=== PATIENT | male | born 1975 | race African-American/Black ===

== ENCOUNTER 2021-09-30 17:20 | Observation (INO) ==
--- NOTE | 2021-09-30 17:51 | DR.HTN ---
HPI Time Seen Time Seen by Provider: 09/30/21 17:50 HPI Comment HPI Comment: PATIENT IS 45YR OLD MALE IN ER WITH HEADACHE AND ELEVATED BP. PATIENT HAVE NO HISTORY OF HYPERTENSION. SAID FOR SEVERAL DAYS BP HAS BEING ELEVATED AND THAT PATIENT WAS HAVING HEADACHE AND JAW PAIN. HE IS WORSE TODAY. Complaints Chief Complaint Doctors Comments: ELEVATED BP, RIGHT TEMPORAL HEADACHE. COVID-19 Coronavirus risk:travel/contact w/high risk person: No Has patient experienced Coronavirus symptoms: No Reviewed Nurses Notes Reviewed: Yes Source History Provided: Patient Mode of Arrival Mode of Arrival: Ambulatory Severity Severity: None Context Circumstances: Spontaneous Onset Associated Signs and Symptoms HTN Associated Signs and Symptoms: Headache, Chest Pain and Shortness of Breath PMH PMH Past Surgical History: No Family History Family Medical History: Diabetes Mellitus, Cancer, CA and Hypertension Social History Do you use any recreational Drugs:: No Travel Risk Coronavirus risk:travel/contact w/high risk person: No Has patient experienced Coronavirus symptoms: No ROS Review of Systems Constitutional: No Symptoms Reported and See HPI; negative Fever, Weakness and Fatigue Eyes: No Symptoms Reported and See HPI; negative Blurred Vision and Diplopia ENTM: No Symptoms Reported and See HPI; negative Nose Discharge and Nose Congestion Respiratoy: No Symptoms Reported and See HPI; negative Moist Cough, Short of Breath and Wheezing Cardiovascular: No Symptoms Reported and See HPI; negative Chest Pain Gastrointestinal/Abdominal: No Symptoms Reported, See HPI and Abdominal Pain; negative Diarrhea, Nausea and Vomiting Genitourinary: No Symptoms Reported and See HPI; negative Dysuria Neurological: See HPI and Headache; negative Weakness and Dizziness Musculoskeletal: No Symptoms Reported and See HPI; negative Muscle Pain Integumentary: No Symptoms Reported and See HPI; negative Rash and Juandice Hematologic/Lymphatic: No Symptoms Reported and See HPI; negative Easy Bruising Endocrine: No Symptoms Reported and See HPI; negative Increased Thirst and Increased Urine Psychiatric: No Symptoms Reported and See HPI All Other Systems: Reviewed and Negative PE Vital Signs Vitals: Temperature 97.6 F Pulse Rate 73 Respiratory Rate 16 Blood Pressure 121/76 O2 Sat by Pulse Oximetry 100 General Limitations: No Limitations General Appearance: Alert and In No Apparent Distress Head Head Exam: Normal Inspection Eyes Eye exam: Normal Appearance; negative Scleral Icterus and Conjunctival Injection Pupils: Regular, Round: Bilateral and Reactive: Bilateral Sclera/Conjunctival: Normal Inspection: Bilateral ENT ENT Exam: Normal Exam Neck Neck Exam: Normal Inspection and Trachea Midline; negative Tenderness Chest Chest Inspection: Normal Inspection and Symmetric Chest Wall Rise Respiratory Respiratory Exam: Normal Lung Sounds Bilat; negative Accessory Muscle Use, Chest Wall Tenderness and Respiratory Distress Respiratory Exam: Bilateral: Clear to Auscultation Cardiovascular Cardiovascular Exam: Regular Rate, Normal Rhythm and Normal Heart Sounds; negative Systolic Murmur and Diastolic Murmur Abdominal Exam Abdominal Exam: Normal Inspection, Normal Bowel Sounds and Soft; negative Tenderness Extremities Extremities Exam: Normal Inspection and Normal Capillary Refill Back Back Exam: Normal Inspection; negative (R) CVA Tenderness and (L) CVA Tenderness Neurologic Neurological Exam: Alert and Oriented X3; negative Motor Sensory Deficit Patient Oriented To: Person, Place and Time Speech: Fluid Speech Cranial Nerve Exam: EOM Function (II, III, IV, ): Normal, Facial Sensation (V): Normal, Facial Palsy (VII): Normal, Gag reflex (XI): Normal and Tongue Deviation: Normal Motor Strength - LUE: 5/5 Motor Strength - RUE: 5/5 Motor Strength - LLE: 5/5 Motor Strength - RLE: 5/5 Upper Motor Neuron Exam: Babinski Sign: Normal Psychiatric Psychiatric Exam: Normal Affect and Normal Mood Skin Skin Exam: Warm, Dry, Intact and Normal Color MDM Differential Diagnosis Differential Diagnosis: Hypertensive emergency Differential Diagnosis Comment: HEADACHE, CVA, MASS LESION. COURSE Treatment Treatment: SEE ORDERS. WHILE IN ER, BECAME BRADYCARDIC AND HAD SYNCOPAL EPISODE. HE WAS HYPOTENSIVE. GIVEN NS IL IV BOLUS. PATIENT ADMITTED TO HOSPITAL FOR FURTHER MANAGEMENT. Reevaluation 1st: Worsened Consultation Consultation Comments: DISCUSSED PATIENT WITH DR. ERNANDEZ. HE [place] WILL ADMIT PATIENT. Education/Counseling Education/Counseling: Patient Educated On: Diagnosis ROR Labs Reviewed Laboratory Results Reviewed?: Yes Result Diagrams: 10/01/21 05:22 10/01/21 05:22 Laboratory: WBC 7.7 X10^3/uL (3.6-10.0) 09/30/21 18:40 RBC 5.30 X10^6/uL (4.7-6.0) 09/30/21 18:40 Hgb 16.2 g/dL (13.5-18.0) 09/30/21 18:40 Hct 45.7 % (42.0-54.0) 09/30/21 18:40 MCV 86.3 fL (80.0-100.0) 09/30/21 18:40 MCH 30.6 pg (27.0-34.0) 09/30/21 18:40 MCHC 35.5 g/dL (33.0-35.0) H 09/30/21 18:40 RDW 12.9 % (11.6-16.5) 09/30/21 18:40 Plt Count 293 X10^3/uL (150.0-450.0) 09/30/21 18:40 MPV 7.2 fL (7.4-11.0) L 09/30/21 18:40 Neut % (Auto) 64.5 % (42.0-75.0) 09/30/21 18:40 Lymph % (Auto) 24.2 % (21.0-51.0) 09/30/21 18:40 [place] % (Auto) 8.6 % (0.0-13.0) 09/30/21 18:40 Eos % (Auto) 2.0 % (0.9-2.9) 09/30/21 18:40 Baso % (Auto) 0.7 % (0.2-1.0) 09/30/21 18:40 Neut # (Auto) 5.0 x10^3/uL (2.2-4.8) H 09/30/21 18:40 Lymph # (Auto) 1.9 X10^3/uL (1.3-2.9) 09/30/21 18:40 [place] # (Auto) 0.7 x10^3/uL (0.3-0.8) 09/30/21 18:40 Eos # (Auto) 0.2 x10^3/uL (0.0-0.2) 09/30/21 18:40 Baso # (Auto) 0.1 X10^3/uL (0.0-0.1) 09/30/21 18:40 Absolute Nucleated RBC 0.1 /100WBC 09/30/21 18:40 Sodium 138 mmol/L (136-145) 09/30/21 18:40 Corrected Sodium 139 mmol/L (136-145) 09/30/21 18:40 Potassium 3.1 mmol/L (3.5-5.1) L 09/30/21 18:40 Chloride 101 mmol/L (98-107) 09/30/21 18:40 Carbon Dioxide 29.1 mmol/L (21-32) 09/30/21 18:40 BUN 15 mg/dL (7-18) 09/30/21 18:40 Creatinine 0.93 mg/dL (0.70-1.30) 09/30/21 18:40 Est GFR (MDRD) Af Amer > 60 (>60) 09/30/21 18:40 Est GFR (MDRD) Non-Af > 60 (>60) 09/30/21 18:40 Glucose 159 mg/dL (65-99) H 09/30/21 18:40 Calcium 8.8 mg/dL (8.5-10.1) 09/30/21 18:40 Corrected Calcium TNP 09/30/21 18:40 Total Bilirubin 0.40 mg/dL (0.2-1.0) 09/30/21 18:40 AST 20 Units/L (15-37) 09/30/21 18:40 ALT 32 Units/L (12-78) 09/30/21 18:40 Alkaline Phosphatase 144 Units/L (46-116) H 09/30/21 18:40 Total Protein 8.3 g/dL (6.4-8.2) H 09/30/21 18:40 Albumin 3.7 g/dL (3.4-5.0) 09/30/21 18:40 Globulin 4.6 g/dL (2.5-4.5) H 09/30/21 18:40 Albumin/Globulin Ratio 0.8 Ratio (1.1-2.1) L 09/30/21 18:40 SARS CoV-2 RNA Rapid DOYLE Negative (NEGATIVE) 09/30/21 20:24 XRAY XRAY Interpreted by: Radiologist (REPORT NOTED AND DISCUSSED WITH PATIENT.) and Self EKG Rate: 72 [place]: Normal Rhythm: NSR Block: AVB Hypertrophy: None ST: Nonsp Opioid Opioid Risk Tool Age (Joe box if 16-45): No Total: 0 Total Score Risk Category: Low Risk Copyright: [facility] predicting aberrant behaviors Diagnosis Discharge Problem: Hypotensive episode, Bradycardia Hypertension Qualifiers: Hypertension type: unspecified Qualified Code(s): I10 - Essential (primary) hypertension Headache Qualifiers: Headache type: unspecified Headache chronicity pattern: acute headache Intractability: intractable Qualified Code(s): R51.9 - Headache, unspecified Instructions Instructions: How to Take Your Blood Pressure Preventing Hypertension Migraine Headache, Rxjf-py-Ilky Heart Attack General Headache Without Cause, Btoq-cs-Vyme Hypertension Forms: Excuse From Work or School Precautions for COVID19 [facility] Patient Portal Social Distancing
[2021-09-30] MEDS ORDERED: CATAPRES TAB 0.1 MG PO ONE (18:31)
[2021-09-30] MEDS ORDERED: CATAPRES TAB 0.1 MG ONE (18:40)
[2021-09-30 18:47] LABS: BASOPHILS # (AUTO) 0.1 X10^3/uL (0.0-0.1); BASOPHILS % (AUTO) 0.7 % (0.2-1.0); EOSINOPHILS # (AUTO) 0.2 x10^3/uL (0.0-0.2); HEMATOCRIT 45.7 % (42.0-54.0); HEMOGLOBIN 16.2 g/dL (13.5-18.0); LYMPHOCYTES # (AUTO) 1.9 X10^3/uL (1.3-2.9); LYMPHOCYTES % (AUTO) 24.2 % (21.0-51.0); MEAN CORPUSCULAR HEMOGLOBIN 30.6 pg (27.0-34.0); MEAN CORPUSCULAR HGB CONC 35.5 g/dL (33.0-35.0); MEAN CORPUSCULAR VOLUME 86.3 fL (80.0-100.0); MEAN PLATELET VOLUME 7.2 fL (7.4-11.0); MONOCYTES # (AUTO) 0.7 x10^3/uL (0.3-0.8); MONOCYTES % (AUTO) 8.6 % (0.0-13.0); NEUTROPHILS % (AUTO) 64.5 % (42.0-75.0); RED CELL DISTRIBUTION WIDTH 12.9 % (11.6-16.5); WHITE BLOOD COUNT 7.7 X10^3/uL (3.6-10.0)
[2021-09-30] MEDS ORDERED: NS 1,000 ML IV 1,000 ML ONE (18:49)
[2021-09-30] MEDS ORDERED: NS 1,000 ML IV 1,000 ML IV ONE (18:52)
[2021-09-30 18:58] LABS: ALANINE AMINOTRANSFERASE 32 Units/L (12-78); ALBUMIN 3.7 g/dL (3.4-5.0); ALKALINE PHOSPHATASE 144 Units/L (46-116); ASPARTATE AMINO TRANSFERASE 20 Units/L (15-37); BLOOD UREA NITROGEN 15 mg/dL (7-18); CALCIUM 8.8 mg/dL (8.5-10.1); CARBON DIOXIDE 29.1 mmol/L (21-32); CHLORIDE 101 mmol/L (98-107); COR NA(FOR HYPERGLY) 139 mmol/L (136-145); CREATININE 0.93 mg/dL (0.70-1.30); SODIUM 138 mmol/L (136-145); TOTAL PROTEIN 8.3 g/dL (6.4-8.2); eGFR NON BLACK RACES > 60 (>60)
--- NOTE | 2021-09-30 19:33 | CT ---
HISTORYHypertensionSTUDYBRAIN W/O CONCOMPARISONNone available.TECHNIQUEAxial non-contrast images of the head with coronal and sagittal reformats.Radiation dose: 1290.00 mGy-cm total DLPFINDINGSNo abnormal areas of acute attenuation in the brain parenchyma.Castillo-white differentiation remains intact.No intracranial, extra-axial, fluid collection.No hemorrhage.No mass, mass effect or midline shift.No ventriculomegaly.No acute fracture.Sinuses are well aerated.Mastoid air cells are well aerated.Globes and intraorbital contents are unremarkable.IMPRESSIONNo acute intracranial abnormality identified.Electronically signed by: Carlos Mills (Sep 30, 2021 19:32:08)
--- NOTE | 2021-09-30 19:33 | RAD ---
HISTORYCP, ELEVATED BPSTUDYCHEST, 1 VIEWCOMPARISONNone availableTECHNIQUEChest radiographic imaging, frontal projection, 1 imageFINDINGSNo cardiomegaly.No focal airspace disease.No pleural effusion.No pneumothorax.No acute osseous abnormality.IMPRESSIONNo imaging findings of acute cardiopulmonary disease.Electronically signed by: Carlos Mills (Sep 30, 2021 19:32:43)
[2021-09-30] MEDS ORDERED: NS 1,000 ML IV 1,000 ML IV SCH (22:20)
[2021-09-30] MEDS ORDERED: K-DUR TAB 20 MEQ PO PRN (22:46)
[2021-09-30] MEDS ORDERED: POTASSIUM CHL 60 MEQ/NS 0.45% 500 ML IV PRN (22:46)
[2021-09-30] MEDS ORDERED: K-RIDER 10 MEQ/NS 100 ML 10 MEQ/100 ML BAG IV PRN (22:46)
[2021-09-30] MEDS ORDERED: MICRO K EXTEN CAP 10 MEQ PO PRN (22:46)
[2021-09-30] MEDS ORDERED: KLOR-CON PO PRN (22:46)
[2021-09-30] MEDS ORDERED: POTASSIUM CHL 40 MEQ/NS 0.45% 500 ML IV PRN (22:46)
[2021-09-30] MEDS ORDERED: POTASSIUM CHLORIDE LIQ 20 MEQ UDC PO PRN (22:46)
[2021-09-30] MEDS ORDERED: MAGNESIUM SULFATE 1 GRAM/100 mL PREMIX 1 G/100 ML BAG IV PRN (22:46)
[2021-09-30] MEDS ORDERED: TYLENOL 325 MG TAB PO PRN (23:03)
[2021-09-30 23:44] VITALS: BMI 27.1
[2021-09-30 23:57] LABS: CKMB % 0.8 % (<4); CREATINE KINASE MB 1.4 ng/mL (0-4.0)
[2021-10-01 06:08] LABS: BASOPHILS % (AUTO) 0.6 % (0.2-1.0); EOSINOPHILS # (AUTO) 0.1 x10^3/uL (0.0-0.2); EOSINOPHILS % (AUTO) 1.5 % (0.9-2.9); HEMATOCRIT 43.6 % (42.0-54.0); HEMOGLOBIN 15.3 g/dL (13.5-18.0); LYMPHOCYTES # (AUTO) 1.6 X10^3/uL (1.3-2.9); LYMPHOCYTES % (AUTO) 22.7 % (21.0-51.0); MEAN CORPUSCULAR HEMOGLOBIN 30.2 pg (27.0-34.0); MEAN CORPUSCULAR HGB CONC 35.1 g/dL (33.0-35.0); MEAN CORPUSCULAR VOLUME 86.1 fL (80.0-100.0); MEAN PLATELET VOLUME 7.6 fL (7.4-11.0); MONOCYTES # (AUTO) 0.6 x10^3/uL (0.3-0.8); MONOCYTES % (AUTO) 8.8 % (0.0-13.0); NEUTROPHILS # (AUTO) 4.6 x10^3/uL (2.2-4.8); NEUTROPHILS % (AUTO) 66.4 % (42.0-75.0); RED BLOOD COUNT 5.07 X10^6/uL (4.7-6.0); RED CELL DISTRIBUTION WIDTH 13.1 % (11.6-16.5)
[2021-10-01 06:47] LABS: ALANINE AMINOTRANSFERASE 30 Units/L (12-78); ALBUMIN 3.4 g/dL (3.4-5.0); ALKALINE PHOSPHATASE 131 Units/L (46-116); ASPARTATE AMINO TRANSFERASE 17 Units/L (15-37); BLOOD UREA NITROGEN 14 mg/dL (7-18); CALCIUM 8.2 mg/dL (8.5-10.1); CARBON DIOXIDE 28.2 mmol/L (21-32); CHLORIDE 105 mmol/L (98-107); CKMB % 0.7 % (<4); COR NA(FOR HYPERGLY) 141 mmol/L (136-145); CREATINE KINASE 143 Units/L (39-308); CREATININE 0.94 mg/dL (0.70-1.30); MAGNESIUM 2.4 mg/dL (1.7-2.9); SODIUM 140 mmol/L (136-145); TOTAL PROTEIN 7.6 g/dL (6.4-8.2); eGFR NON BLACK RACES > 60 (>60)
[2021-10-01 08:26] VITALS: BP 153/89
[2021-10-01] MEDS ORDERED: CATAPRES TAB 0.1 MG PO SCH (09:00)
[2021-10-01] MEDS ORDERED: FIORICET TAB PO ONE (09:23)
--- NOTE | 2021-10-01 10:07 | DR.CARTERS ---
Short Stay Summary - Admission Date Date of Admission: 09/30/21 - Discharge Date Discharge Date: 10/01/21 - Admission Diagnoses (1) Chest pain Status: Acute (2) Hypertension Status: Acute (3) Bradycardia Status: Acute (4) Headache Status: Acute - Hospital Course Hospital Course: IS A 45 YEAR OLD PATIENT OF OURS. HE PRESENTED TO THE ER WITH COMPLAINTS OF ELEVATED BLOOD PRESSURE, PERSISTENT HEADACHE, AND JAW PAIN. PATIENT REPORTED THAT SYMPTOMS HAVE BEEN PRESENT FOR THE PAST 5-6 DAYS. HE DENIED WEAKNESS, DIFFICULTY WITH BALANCE, OR SLURRED SPEECH. PATIENT DESCRIBES HEADACHE THROBBING AND RATES IT A 8/10. HIS PMH INCLUDES DEPRESSION, DM II, HYPOTHYROIDISM. ON ARRIVAL TO THE ER, HIS VITALS WERE: 97.6-96-18-97%-159/103. LABS WERE OBTAINED. WBC 7.7, HGB 16.2, HCT 45.7, SODIUM 138, POTASSIUM 3.1, BUN 15, CREATININE 0.93, GLUCOSE 159, CALCIUM 8.8, ALK PHOS 144, TOTAL PROTEIN 8.3, GLOBULIN 4.6. CARDIAC ENZYMES WERE WITHIN NORMAL LIMITS. COVID-[address] WAS OBTAINED AND REVEALED: No acute intracranial abnormality identified. EKG REVEALED: SINUS RHYTHM WITH HR 72. CHEST XRAY REVEALED: No imaging findings of acute cardiopulmonary disease. WHILE IN THE ER, PATIENT BECAME DIAPHORETIC, HYPOTENSIVE, AND HEART RATE DROPPED TO THE 40s. BLOOD PRESSURE DROPPED TO 78/45. PATIENT WAS GIVEN A NORMAL SALINE BOLUS AND PLACED IN [place] POSITION. AFTER BOLUS, BLOOD PRESSURE INCREASED TO 121/76 AND HR INCREASED TO 73 WITH NORMAL SINUS RHYTHM. PATIENT WAS ADMITTED TO THE HOSPITAL FOR FURTHER EVALUATION OF HYPERTENSION, HEADACHE, BRADYCARDIA, CHEST PAIN. HE WAS STARTED ON NORMAL SALINE AT KVO, THE POTASSIUM AND MAGNESIUM PROTOCOLS, CATAPRES 0.1MG PO BID, AND TYLENOL 650MG PO Q6H PRN. WE PLANNED TO OBTAIN SERIAL CARDIAC ENZYMES AND EKGS. OTHERWISE, WE PLANNED TO FOLLOW UP WITH AM LABS AND CONTINUE TO MONITOR. ON THE MORNING FOLLOWING ADMISSION, PATIENT IS ALERT AND ORIENTED, SITTING UP ON THE SIDE OF BEAD. HE CONTINUES WITH MILD HEADACHE, BUT DENIES ANY OTHER COMPLAINTS. HE RESPONDS VERBALLY AND ANSWERS QUESTIONS APPROPRIATELY. ON EXAMINATION, HEART IS REGULAR IN RATE AND RHYTHM. BILATERAL LUNGS ARE CLEAR TO AUSCULTATION. ABDOMEN IS ROUND, SOFT, AND NON-TENDER WITH NORMAL BOWEL SOUNDS NOTED IN ALL QUADRANTS. HIS VITALS THIS MORNING ARE: 98.6-100-20-98%-153/89. LABS WERE OBTAINED. HE IS HEMODYNAMICALLY STABLE. CARDIAC ENZYMES WNL. NO CHANGES NOTED TO EKGS. BLOOD PRESSURE AND PULSE RATE HAVE BEEN STABLE THROUGHOUT THE NIGHT. WE PLANNED FOR DISCHARGE. INSTRUCTIONS FOR MEDICATIONS AND FOLLOW-UP WERE DISCUSSED WITH PATIENT AND FAMILY. THEY VERBALIZED UNDERSTANDING OF ALL ORDERS. PATIENT WAS DISCHARGED HOME WITH NEW PRESCRIPTION FOR IRBESARTAN 150MG PO DAILY AND FIORICET 2 CAPSULES PO Q8H PRN HEADACHE. HE WAS INSTRUCTED TO DISCONTINUE THE ADDERALL SINCE HE IS ALSO TAKING VYVANSE. HE WAS INSTRUCTED TO FOLLOW UP IN THE OFFICE IN ONE WEEK. PATIENT WAS DISCHARGED HOME WITH SPOUSE IN STABLE, IMPROVED CONDITION. TIME SPENT ON CLINICAL ASSESSMENT, REVIEWING LABS AND IMAGING, DECISION MAKING, DISCHARGE INSTRUCTIONS, PREPARING DISCHARGE PAPERS, AND DOCUMENTATION GREATER THAN 75 MINUTES. - Discharge Medications Discharge Medications: Home Medication List Januvia 50 mg PO DAILY 09/30/21 [History] Vyvanse 50 mg PO DAILY 09/30/21 [History] ergocalciferol (vitamin D2) 1,250 mcg PO WEEKLY 09/30/21 [History] escitalopram oxalate 20 mg PO DAILY 09/30/21 [History] levothyroxine 25 mcg PO DAILY 09/30/21 [History] [id number]-spgencuvqqrij-jeuo [Fioricet] 2 cap PO Q8H PRN #40 cap MDD 6 10/01/21 [Rx] irbesartan 150 mg PO DAILY #30 tab 10/01/21 [Rx] Prescriptions: [id number]-[id number] [Fioricet] Elvin Love irbesartan Elvin Love - Discharge Plan Disposition: 01 HOME, SELF-CARE Condition: Stable Prescriptions: [id number]-iunk [Fioricet] 2 cap PO Q8H PRN #40 cap MDD 6 PRN Reason: irbesartan 150 mg PO DAILY #30 tab - Follow up/Referrals Follow up/Referrals: Elvin Love [Primary Care Provider] - 10/15/21 10:00 am Johnie Tirado [STAFF PHYSICIAN] - 1 WEEK - Instructions Instructions: How to Take Your Blood Pressure, Preventing Hypertension, Migrai ne Headache, Chzk-ox-Uqvf, Heart Attack, General Headache Without Cause, Jnrs-nj-Ikqx, Hypertension Additional Instructions: DIET TOLERATED. ACTIVITY TOLERATED. CARDIOLOGY APPOINTMENT WITH Forms: Excuse From Work or School, Precautions for COVID19, [facility], Patient Portal, Social Distancing
== END 2021-10-01 10:30 | disposition home or self-care (01) ==
LOC: MED/SURG 17:25 → ER 17:25 → MED/SURG 22:25
PROVIDERS: ADMIT Internal Medicine; ATTEND Internal Medicine
DX: R07.89 Other chest pain; R00.1 Bradycardia, unspecified; Z20.822 Contact with and (suspected) exposure to COVID-19; E11.65 Type 2 diabetes mellitus with hyperglycemia; R51.9 Headache, unspecified; I10 Essential (primary) hypertension; R94.31 Abnormal electrocardiogram [ECG] [EKG]; E03.8 Other specified hypothyroidism